=== PATIENT | male | born 1935 | race Caucasian/White ===

== ENCOUNTER 2016-04-18 13:50 | Outpatient (RCR) | payer OTHER ==
[~2016-04-18 13:50] MED LIST: ACYCLOVIR; ASPIR-LOW81 MG PO; CLONAZEPAM; CLONIDINE0.1 MG GT; COZAAR100 MG PO; SYNTHROID25 MCG PO
== END 2016-05-14 | disposition home or self-care (01) ==
LOC: PTY 13:50
DX: M41.9 Scoliosis, unspecified (principal); M54.5 Low back pain
CPT/HCPCS: 97110; 97140; G0283

== ENCOUNTER 2016-06-06 13:54 | Outpatient (RCR) | payer OTHER | END 2016-06-11 | disposition home or self-care (01) | LOC: PTY 13:54 | DX: M41.9 Scoliosis, unspecified (principal); M54.5 Low back pain ==

== ENCOUNTER 2016-06-25 13:35 | Outpatient (RCR) | payer OTHER | END 2016-07-12 | disposition home or self-care (01) | LOC: PTY 13:35 | DX: M41.9 Scoliosis, unspecified (principal); M54.5 Low back pain ==

== ENCOUNTER 2017-01-10 11:00 | Outpatient (RCR) | payer OTHER | END 2017-01-11 | disposition home or self-care (01) | LOC: PTY 11:00 | DX: M79.671 Pain in right foot (principal); M79.672 Pain in left foot; M54.9 Dorsalgia, unspecified; M79.605 Pain in left leg; M79.604 Pain in right leg | CPT/HCPCS: 97110; 97140; 97161; G0283 ==

== ENCOUNTER → 2017-02-11 | Outpatient (RCR) | payer OTHER | END | disposition home or self-care (01) | LOC: PTY 01-14 10:47 | DX: M79.671 Pain in right foot (principal); M79.672 Pain in left foot | CPT/HCPCS: 97110; 97140; G0283 ==